=== PATIENT | female | born 1945 | race Caucasian/White ===

== ENCOUNTER 2021-08-20 03:03 | Outpatient (CLI) | payer MEDICARE, BC, SELFPAY ==
[2021-08-20 16:11] LABS: FREE T4 1.29 ng/dL (0.76-1.46); TSH 1.78 uIU/mL (0.36-3.74)
== END 2021-08-20 03:04 | disposition home or self-care (01) ==
PROVIDERS: PCP Internal Medicine; Visit Provider Internal Medicine
DX: E03.9 Hypothyroidism, unspecified (principal)
CPT/HCPCS: 36415; 84439; 84443

== ENCOUNTER 2024-07-06 01:13 | Outpatient (CLI) | payer MEDICARE, BC, SELFPAY ==
[2024-07-06 08:31] LABS: Abs Immature Grans 0.02 10^3/uL (0.0-0.06); Absolute Basophil Count 0.02 10^3/uL (0.0-0.2); Absolute Eosinophil Count 0.13 10^3/uL (0.0-0.7); Absolute Lymphocyte Count 1.27 10^3/uL (1.2-3.4); Absolute Monocyte Count 0.42 10^3/uL (0.1-0.8); Absolute Neutrophil Count 2.72 10^3/uL (1.2-6.7); Basophils % 0.4 %; Eosinophils % 2.8 %; HCT 36.7 % (36.0-46.0); HGB 12.8 g/dL (11.2-15.7); Immature Grans % 0.4 %; Lymphocytes % 27.7 %; MCH 35.3 pg (27.0-33.0); MCHC 34.9 % (32.0-36.0); MCV 101 fL (80-95); MPV 9.9 fL (8.0-11.0); Monocytes % 9.2 %; Neutrophils % 59.5 %; Nucleated RBC 0.4 % (0.0-0.3); Platelet Count 128 10^3/uL (130-400); RBC 3.63 10^6/uL (3.93-5.22); RDW 14.1 % (11.7-14.6); RDW-SD 51.6 fL; WBC 4.58 10^3/uL (4.4-10.8)
[2024-07-06 09:42] LABS: Anion Gap 9.1 mmol/L (3-11); BUN 17 mg/dL (7-18); CO2 25.9 mmol/L (21.0-32.0); CREATININE 0.8 mg/dL (0.55-1.02); Calcium 9.3 mg/dL (8.5-10.1); Calculated LDL 75 mg/dL (<100); Chloride 107 mmol/L (98-107); Cholesterol 171 mg/dL (<200); Glucose 95 mg/dL (74-106); HDL Cholesterol 60 mg/dL (40-60); Potassium 4.4 mmol/L (3.5-5.1); Sodium 142 mmol/L (136-145); Triglyceride 184 mg/dL (<150)
== END 2024-07-06 01:14 | disposition home or self-care (01) ==
PROVIDERS: PCP Internal Medicine; Visit Provider Internal Medicine
DX: E78.5 Hyperlipidemia, unspecified (principal); E55.9 Vitamin D deficiency, unspecified; D75.89 Other specified diseases of blood and blood-forming organs
CPT/HCPCS: 36415; 80048; 80061; 82306; 85025